=== PATIENT | male | born 1990 | race Hispanic/Latino ===

== ENCOUNTER 2021-07-07 16:29 | Inpatient (IN) | payer SELFPAY ==
[~2021-07-07] VITALS: Ht 190.5 cm; Wt 90.7 kg
[2021-07-07] MEDS ORDERED: SODIUM CHLORIDE 0.9% 1000ML 1,000 ML IV SCH (16:49)
[2021-07-07] MEDS ORDERED: ASPIRIN 81 MG CHEW TAB PO ONE (17:00)
[2021-07-07] MEDS ORDERED: METOPROLOL TARTRATE INJ 1 MG/ML VIAL IV ONE (17:00)
[2021-07-07 17:06] LABS: BASOPHILS % 0.4 % (0.0-1.0); EOSINOPHILS % 0.1 % (0.0-6.0); HEMATOCRIT 48.9 % (38.2-49.6); HEMOGLOBIN 16.5 g/dL (14.0-18.0); LYMPHOCYTES % 20.1 % (18.0-39.1); MEAN CORPUSCULAR HEMOGLOBIN 28.4 pg (28-32); MEAN CORPUSCULAR HGB CONC 33.7 g/dL (31-35); MEAN CORPUSCULAR VOLUME 84.2 fL (81-99); MONOCYTES # (AUTO) 0.7 (0.2-0.8); NEUTROPHILS # (AUTO) 7.1 (2.1-6.9); PLATELET COUNT 231 x10e3/uL (140-360); RED BLOOD COUNT 5.81 x10e6/uL (4.3-5.7); RED CELL DISTRIBUTION WIDTH 12.7 % (11.7-14.4)
[2021-07-07 17:14] LABS: AMPHETAMINES SCREEN,URINE NEGATIVE (NEGATIVE); BENZODIAZEPINES SCREEN,URINE NEGATIVE (NEGATIVE); CLARITY,URINE SL CLOUDY (CLEAR); COLOR,URINE AMBER (YELLOW); KETONES,URINE >=160 (NEGATIVE); LEUKOCYTE ESTERASE ,URINE NEGATIVE (NEGATIVE); NITRITE,URINE NEGATIVE (NEGATIVE); PHENCYCLIDINE SCREEN,URINE NEGATIVE (NEGATIVE); PROTEIN,URINE DIPSTICK 2+ (NEGATIVE); URINE UROBILINOGEN 1 mg/dL (0.2 - 1)
[2021-07-07 17:23] LABS: ALANINE AMINOTRANSFERASE 25 IU/L (0-55); ALBUMIN 4.8 g/dL (3.5-5.0); ALBUMIN/GLOBULIN RATIO 1.5 (0.8-2.0); ALKALINE PHOSPHATASE 86 IU/L (40-150); ANION GAP 20.4 mmol/L (8-16); BLOOD UREA NITROGEN 12 mg/dL (7-26); BUN/CREATININE RATIO 15 (6-25); CALCIUM 9.7 mg/dL (8.4-10.2); CARBON DIOXIDE 21 mmol/L (22-29); CHLORIDE 105 mmol/L (98-107); CREATINE KINASE 190 IU/L (30-200); CREATININE, SERUM 0.82 mg/dL (0.72-1.25); EST GLOMERULAR FILTRATION RATE 110 ML/MIN (60-); GLUCOSE 110 mg/dL (74-118); POTASSIUM 3.4 mmol/L (3.5-5.1); SODIUM 143 mmol/L (136-145)
[2021-07-07 17:25] LABS: AMORPHOUS SEDIMENT,URINE FEW (FEW); BACTERIA,URINE MODERATE /HPF; EPITHELIAL CELLS,URINE RARE /LPF; MUCUS,URINE MANY (RARE); RBC,URINE 0-5 /HPF (0-5)
[2021-07-07] MEDS ORDERED: IOPAMIDOL 370 MG/ML 200 ML INFUS..BTL INJ ONE (18:29)
[2021-07-07] MEDS ORDERED: SODIUM CHLORIDE 0.9% 50ML 50 ML ONE (18:29)
[2021-07-07] MEDS ORDERED: METOPROLOL TARTRATE 25 MG TAB PO SCH (20:15)
[2021-07-07] MEDS ORDERED: SODIUM CHLORIDE FLUSH 10 ML SYR INJ PRN (20:45)
[2021-07-07] MEDS: METOPROLOL TARTRATE 25 MG TAB PO SCH (20:47)
[2021-07-08] VITALS (9 sets, daily range): BP systolic 131–147; BP diastolic 92–105
[2021-07-08] MEDS: METOPROLOL TARTRATE 25 MG TAB PO SCH ×5 (02:27→23:04)
[2021-07-08] MEDS: LOSARTAN POTASSIUM 25 MG TAB PO SCH ×2 (06:41→20:54)
[2021-07-08] MEDS ORDERED: POTASSIUM CHLORIDE 20 MEQ TAB CR PO STA (10:31)
[2021-07-08] MEDS ORDERED: FAMOTIDINE 20 MG TAB PO ONE (10:45)
[2021-07-08] MEDS ORDERED: MAGNESIUM SULFATE 2GM/50ML 50 ML IV ONE (11:30)
[2021-07-08] MEDS ORDERED: METOPROLOL TARTRATE 50 MG TAB PO ONE (11:30)
[2021-07-08 13:51] LABS: CREATINE KINASE MB 1.1 ng/mL (0-5.0)
[2021-07-08] MEDS: FAMOTIDINE 20 MG TAB PO SCH (16:30)
[2021-07-09 00:10] VITALS: BP 122/76
[2021-07-09] MEDS: METOPROLOL TARTRATE 25 MG TAB PO SCH ×3 (05:17→17:10)
[2021-07-09] MEDS: FAMOTIDINE 20 MG TAB PO SCH ×2 (05:17→17:09)
[2021-07-09 05:26] VITALS: BP 139/99
[2021-07-09 07:47] VITALS: BP 128/82
[2021-07-09 08:16] VITALS: BP 128/82
[2021-07-09] MEDS ORDERED: ACETAMINOPHEN 325 MG TAB PO PRN (10:00)
[2021-07-09] MEDS ORDERED: ONDANSETRON HCL INJ 2MG/ML 2ML 2 MG/ML VIAL IV PRN (10:00)
[2021-07-09] MEDS: LOSARTAN POTASSIUM 25 MG TAB PO SCH (10:18)
[2021-07-09] MEDS ORDERED: IOPAMIDOL 370 MG/ML 200 ML INFUS..BTL INJ ONE (11:44)
[2021-07-09] MEDS ORDERED: SODIUM CHLORIDE 0.9% 50ML 50 ML ONE (11:44)
[2021-07-09 12:03] VITALS: BP 121/89
[2021-07-09 16:03] VITALS: BP 122/91
== END 2021-07-09 19:11 | disposition home or self-care (01) | DRG 310 ==
LOC: ER 16:33 → ERHOLD 20:33 → MED/SURG2 07-08 02:05 → OBSVTOIN 07-09 10:25
PROVIDERS: ADMIT Internal Medicine; ATTEND Internal Medicine
DX: I47.1 Supraventricular tachycardia (principal); R00.2 Palpitations; Z20.822 Contact with and (suspected) exposure to COVID-19
CPT/HCPCS: 36415; 71045; 71260; 74177; 80053; 80061; 80307; 81001; 82550; 82553; 84443; 84484; 85025; 93306; 99284; G0378; J3475; J7030; Q9967; U0002